=== PATIENT | female | born 1970 | race Caucasian/White ===

== ENCOUNTER → 2016-11-29 | Outpatient (CLI) | payer BC ==
--- NOTE | 2016-11-30 10:15 | WWHP ---
DATE OF SERVICE: 11/29/2016. CHIEF COMPLAINT: Patient is here for her routine gynecologic exam and mammogram. HPI: This is a 46-year-old G3, P3, with an LMP of 2013. Her is status post vasectomy. She has not had any vaginal bleeding since 2013. Has not had any significant hot flashes. She is without gynecologic complaints. PAST MEDICAL HISTORY: Unremarkable. MEDICATIONS: 1. Multivitamin daily. 2. Calcium supplement daily. 3. Vitamin C supplement daily. 4. Vitamin B12 supplement daily. 5. Fish oil supplement daily. ALLERGIES: No known drug allergies. PAST SURGICAL HISTORY: Right arthroscopic knee surgery in high school. 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 She has no history of STDs. SOCIAL HISTORY: She denies tobacco and drug use and socially drinks alcohol. 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 FAMILY HISTORY: Unremarkable. REVIEW OF SYSTEMS: Weight has been stable. She denies respiratory, cardiac, or GI problems. PHYSICAL EXAM: Blood pressure 109/73. Height 5 feet 4 inches. Weight 143 pounds. Temperature 98.4, pulse 58. This a well-developed, well-nourished white female who is alert and oriented x3 in no acute distress. HEENT is within normal limits. NECK: Supple without mass or thyromegaly. CHEST AND LUNGS: Clear to auscultation. HEART: Regular rate and rhythm. BREASTS: Without mass or discharge. Axillary exam is negative for adenopathy. BACK: Negative for CVA tenderness. ABDOMEN: Soft, nontender, without palpable masses. PELVIC EXAM: Normal external genitalia. Cervix and vagina appear normal without significant atrophy. There is no evidence of prolapse. The uterus is midposition, nongravid size and nontender. There are no palpable adnexal masses or tenderness. RECTAL EXAM: Negative for mass or tenderness and is negative for occult blood. EXTREMITIES: Nontender. IMPRESSION: 1. A 46-year-old female with normal gynecologic exam, whose is status post vasectomy. 2. Three years of amenorrhea with no significant vasomotor symptoms. She is probably postmenopausal. PLAN: 1. Pap smear was performed. 2. Self-breast examination was discussed. 3. Mammogram will be done today. 4. FSH will be drawn today to confirm her postmenopausal status. We will do this today because she is really having minimal menopausal symptoms other than the amenorrhea. Thyroid screening was done during this amenorrhea and was normal. 5. If she is menopausal, I have recommended that she increase her calcium intake to about 120% of the daily value. 6. She will return in one year.
--- NOTE | 2016-12-01 10:41 | MM ---
Reason for exam: screening (asymptomatic). Last mammogram was performed 1 year and 4 months ago. History: Patient is postmenopausal. Physical Findings: A clinical breast exam by your physician is recommended on an annual basis and results should be correlated with mammographic findings. MG 3D Screening Mammo W/Cad Bilateral CC and MLO view(s) were taken. Prior study comparison: July 28, 2015, bilateral MG 3d screening mammo w/cad. March 25, 2014, bilateral MG screening mammo w CAD. There are scattered fibroglandular densities. No significant changes when compared with prior studies. ASSESSMENT: Benign, BI-RAD 2 RECOMMENDATION: Routine screening mammogram of both breasts in 1 year.
== END ==
LOC: WWCWWP 15:54
PROVIDERS: ATTEND Obstetrics & Gynecology
DX: Z12.31 Encounter for screening mammogram for malignant neoplasm of breast (principal); N91.1 Secondary amenorrhea
CPT/HCPCS: 83001; 77063; G0202

== ENCOUNTER → 2018-02-14 | Outpatient (CLI) | payer BC ==
[2018-02-14 09:08] VITALS: BP 124/76; PULSE 56; TEMP 97.6; BMI 25.5
--- NOTE | 2018-02-14 09:43 | P.HPOB ---
History of Present Illness H&P Date: 02/14/18 Chief Complaint: The patient is here for her routine gynecologic exam and mammogram. This is a 47-year-old G5 3 PIII with an LMP of 2013. Patient is without gynecologic complaints. Her status post vasectomy. She denies any postmenopausal bleeding. Review of Systems The patient has gained 6 pounds over the last year. She denies respiratory, cardiac, or G.I. problems. 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 She has no history of STDs. 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 - Past Family History Father Family Medical History: No Reported History Mother Family Medical History: No Reported History Medications and Allergies Home Medications Medication Instructions Recorded Confirmed Type Multivitamin with Iron 1 each PO 02/14/18 History [Multivitamins with Iron] Allergies Allergy/AdvReac Type Severity Reaction Status Date / Time No Known Allergies Allergy Unverified 02/14/18 09:03 Exam Vital Signs Temp Pulse BP 02/14/18 09:03 97.6 F 56 L 124/76 Intake and Output 02/13/18 02/14/18 02/14/18 22:59 06:59 14:59 Other: Weight 67.585 kg 5'4", BMI 25.6. This is a well-developed well-nourished white female who is alert and oriented times 3 in no acute distress. HEENT: Within normal limits. NECK: Supple without mass or thyromegaly. CHEST AND LUNGS: Clear to auscultation. HEART: Regular rate and rhythm. BREASTS: Are without mass or discharge. AXILLARY EXAM: Negative for adenopathy. BACK: Negative for CVA tenderness. ABDOMEN: Soft, nontender, without palpable masses. PELVIC EXAM: Normal external genitalia with no significant atrophy. Cervix and vagina appear normal. There is no unusual discharge. There is no evidence of prolapse. The uterus is midposition, nongravid size and nontender. There are no palpable adnexal masses or tenderness. RECTAL EXAM: negative for mass or tenderness and is negative for occult blood. EXTREMITIES: Nontender. IMPRESSION: 1. 47-year-old menopausal female with normal gynecologic exam 2. History of mildly elevated cholesterol PLAN: 1. Pap smear was deferred since she had a normal one last year. 2. Self breast awareness was discussed. 3. Screening mammogram will be done today. 4. Blood tests today will include: fasting lipid profile, comprehensive chem panel and CBC for screening. 5. Osteoporosis prevention was discussed. 6. She will return in one year.
--- NOTE | 2018-02-15 15:39 | MM ---
Reason for exam: screening (asymptomatic). Last mammogram was performed 1 year and 3 months ago. History: Patient is postmenopausal. Physical Findings: A clinical breast exam by your physician is recommended on an annual basis and results should be correlated with mammographic findings. MG 3D Screening Mammo W/Cad Bilateral CC and MLO view(s) were taken. Prior study comparison: November 29, 2016, bilateral MG 3d screening mammo w/cad. July 28, 2015, bilateral MG 3d screening mammo w/cad. There are scattered fibroglandular densities. Asymmetric breast tissue in the left posterior position, stable. There is no discrete abnormality. ASSESSMENT: Negative, BI-RAD 1 RECOMMENDATION: Routine screening mammogram of both breasts in 1 year.
--- NOTE | 2018-02-21 13:38 | P.PN ---
Progress Note - Text Progress Note Date: 02/21/18 OUTPATIENT FOLLOW-UP NOTE TEST(S)/RESULTS: test results from 02/14/2018 include benign mammogram and blood work including comprehensive chemistry panel ,lipid profile and CBC. Lipid panel breakdown was acceptable. She did have minimally elevated total bilirubin. Alk phos, liver function studies were within normal limits. METHOD OF NOTIFICATION: vision was notified by phone. PATIENT COMMENTS: the patient understands the results. DIAGNOSIS: minimally elevated total bilirubin with other normal screening test results. DISCUSSION: we have discussed how there can be many different causes for a slightly elevated total bilirubin, including liver dysfunction, gallbladder problems and other causes for red blood cell breakdown. Since she had a normal comprehensive chemistry panel other than the total bilirubin, I feel this finding is probably less concerning. PLAN: repeat the total bilirubin with the liver panel which should also give indirect and direct bilirubin. If it remains elevated, consider referral primary care physician or G.I. specialist.
== END | disposition home or self-care (01) ==
LOC: WWCWWP 08:42
PROVIDERS: ATTEND Obstetrics & Gynecology
DX: Z12.31 Encounter for screening mammogram for malignant neoplasm of breast (principal)
CPT/HCPCS: 77063; 77067

== ENCOUNTER → 2018-02-14 | Outpatient (CLI) | payer BC ==
[2018-02-14 10:11] LABS: HCT 40.1 % (34.0-46.0); HGB 13.3 gm/dL (11.4-16.0); MCH 31.2 pg (25.0-35.0); MCHC 33.1 g/dL (31.0-37.0); MCV 94.1 fL (80.0-100.0); Mean Platelet Volume 8.5; Platelet Count 219 k/uL (150-450); RBC 4.26 m/uL (3.80-5.40); RDW 12.5 % (11.5-15.5); WBC 4.3 k/uL (3.8-10.6)
[2018-02-14 10:28] LABS: ALT 27 U/L (9-52); AST 33 U/L (14-36); Albumin 4.3 g/dL (3.5-5.0); Alkaline Phosphatase 55 U/L (38-126); Anion Gap 9 mmol/L; Blood Urea Nitrogen 11 mg/dL (7-17); Calcium 9.7 mg/dL (8.4-10.2); Carbon Dioxide 29 mmol/L (22-30); Chloride 103 mmol/L (98-107); Cholesterol 223 mg/dL (<200); Glucose 92 mg/dL (74-99); HDL Cholesterol 99 mg/dL (40-60); LDL Cholesterol,Calculated 103 mg/dL (0-99); Sodium 141 mmol/L (137-145); Total Bilirubin 1.4 mg/dL (0.2-1.3); Triglycerides 107 mg/dL (<150)
== END | disposition home or self-care (01) ==
LOC: LABWHC1 09:52
PROVIDERS: ATTEND Obstetrics & Gynecology
DX: Z00.00 Encounter for general adult medical examination without abnormal findings (principal); E78.5 Hyperlipidemia, unspecified
CPT/HCPCS: 36415; 80053; 80061; 85027

== ENCOUNTER → 2019-08-20 | Outpatient (CLI) | payer BC ==
[2019-08-20 16:19] VITALS: BP 123/72; PULSE 52; RESP 16; TEMP 98.1
--- NOTE | 2019-08-20 17:17 | P.HPOB ---
History of Present Illness H&P Date: 08/20/19 Chief Complaint: The patient is here for her routine gynecologic exam. This is a 49-year-old with an LMP of 2013. The patient is without gynecologic complaints and denies any postmenopausal bleeding. Her is status post vasectomy. Review of Systems The patient's weight has been stable over the last year. She denies respiratory, cardiac, or G.I. problems. 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 History of Any Multi-Drug Resistant Organisms: None Reported Past Surgical History: Orthopedic Surgery Additional Past Surgical History / Comment(s): Right arthroscopic knee surgery. 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 - Past Family History Father Family Medical History: No Reported History Mother Family Medical History: No Reported History Medications and Allergies Home Medications Medication Instructions Recorded Confirmed Type Multivitamin with Iron 1 each PO DAILY 02/14/18 08/20/19 History [Multivitamins with Iron] Calcium Carbonate [Calcium] 600 mg PO DAILY 08/20/19 08/20/19 History Allergies Allergy/AdvReac Type Severity Reaction Status Date / Time No Known Allergies Allergy Unverified 02/14/18 09:03 Exam Vital Signs Temp Pulse Resp BP Pulse Ox 08/20/19 16:15 98.1 F 52 L 16 123/72 98 Intake and Output 08/20/19 08/20/19 08/20/19 06:59 14:59 22:59 Other: Weight 67.132 kg Height 5 feet 4 inches, weight 148 pounds, BMI 25.4. This is a well-developed well-nourished white female who is alert and oriented times 3 in no acute distress. HEENT: Within normal limits. NECK: Supple without mass or thyromegaly. CHEST AND LUNGS: Clear to auscultation. HEART: Regular rate and rhythm. BREASTS: Are without mass or discharge. AXILLARY EXAM: Negative for adenopathy. BACK: Negative for CVA tenderness. ABDOMEN: Soft, nontender, without palpable masses. PELVIC EXAM: Normal external genitalia with minimal atrophy. Cervix and vagina appear normal is minimal atrophy. There is no unusual discharge. There is no evidence of prolapse. The uterus is midposition, nongravid size and nontender. There are no palpable adnexal masses or tenderness. RECTAL EXAM: negative for mass or tenderness and is negative for occult blood. EXTREMITIES: Nontender. IMPRESSION: 1. 49-year-old menopausal female with normal gynecologic exam. 2. History of mildly elevated cholesterol. PLAN: 1. Pap smear was performed. 2. Self breast awareness was discussed with the patient. 3. Screening mammogram was declined by the patient. She states she plans on doing this again next year. She had a normal one on 02/14/2018. 4. Osteoporosis prevention was discussed. I have stressed the importance of adequate calcium, vitamin D and regular exercise. Recommended amounts of calcium and vitamin D were also discussed. 5. The patient is requesting screening labs. She states she does not have a primary care physician at this time. This will include fasting lipid profile, comprehensive chem panel, and CBC. She had a minimally elevated total bilirubin in 2018. This will be repeated with her comprehensive chem panel. 6. She was advised to return in one year for her annual well woman exam.
--- NOTE | 2019-08-28 10:16 | P.PN ---
Progress Note - Text Progress Note Date: 08/28/19 OUTPATIENT FOLLOW-UP NOTE TEST(S)/RESULTS: Pap smear done on 08/20/2019 was negative. Blood work done on 08/27/2019 included a normal CBC, lipid profile with mildly elevated cholesterol with a good lipid break down, and comprehensive chem panel which was normal except for slightly increased BUN/creatinine ratio which probably indicates mild dehydration. METHOD OF NOTIFICATION:The patient was notified by phone. PATIENT COMMENTS: The patient is happy to hear these results. DIAGNOSIS: Negative Pap smear and good lab screening tests. DISCUSSION:Last year her total bilirubin was minimally elevated and this time was within normal limits.] PLAN: She was advised to return in one year for her annual well woman exam.
== END | disposition home or self-care (01) ==
LOC: WWCWWP 15:49
PROVIDERS: ATTEND Obstetrics & Gynecology
DX: Z53.9 Procedure and treatment not carried out, unspecified reason (principal)

== ENCOUNTER → 2019-08-27 | Outpatient (CLI) | payer BC ==
[2019-08-27 08:00] LABS: HCT 41.6 % (34.0-46.0); HGB 13.7 gm/dL (11.4-16.0); MCH 31.7 pg (25.0-35.0); Mean Platelet Volume 8.9; Platelet Count 231 k/uL (150-450); RBC 4.33 m/uL (3.80-5.40); RDW 11.9 % (11.5-15.5); WBC 5.3 k/uL (3.8-10.6)
[2019-08-27 12:07] LABS: African American GFR (CKD) 119.6 (60.0-200.0); Albumin 4.6 g/dL (3.80-4.90); Albumin/Globulin Ratio 2.19 (1.60-3.17); Anion Gap 8.2 mmol/L (4.00-12.00); BUN/Creat Ratio 21.43 Ratio (12.00-20.00); Calcium 9.5 mg/dL (8.7-10.3); Carbon Dioxide 26.8 mmol/L (21.6-31.8); Chol/HDL Ratio 2.23; Globulin 2.1 g/dL (1.6-3.3); LDL Cholesterol,Calculated 102.2 mg/dL (0.0-131.0); Non-African American GFR(CKD) 103.2 (60.0-200.0); Potassium 3.8 mmol/L (3.5-5.5); Total Bilirubin 1.2 mg/dL (0.2-1.2); Total Protein 6.7 g/dL (6.2-8.2); VLDL Calculation 15.8 mg/dL (5.00-40.00)
== END | disposition home or self-care (01) ==
LOC: LABWHC1 07:27
PROVIDERS: ATTEND Obstetrics & Gynecology
DX: Z00.00 Encounter for general adult medical examination without abnormal findings (principal); E78.5 Hyperlipidemia, unspecified
CPT/HCPCS: 36415; 80053; 80061; 85027

== ENCOUNTER → 2020-12-24 | Outpatient (CLI) | payer BC ==
[2020-12-24 22:39] LABS: Basophils # (A) 0.02 X 10*3/uL (0.00-0.10); Basophils % (A) 0.3 %; Eosinophils # (A) 0.03 X 10*3/uL (0.04-0.35); Eosinophils % (A) 0.5 %; HGB 13.3 g/dL (12.0-15.0); Lymphocytes # (A) 1.61 X 10*3/uL (0.90-5.00); Lymphocytes % (A) 25.1 %; MCH 31.4 pg (27.0-32.0); MCHC 33.3 g/dL (32.0-37.0); MCV 94.3 fL (80.0-97.0); Mean Platelet Volume 11.8 fL (9.5-12.2); Monocytes # (A) 0.53 X 10*3/uL (0.20-1.00); Monocytes % (A) 8.3 %; Neutrophils # (A) 4.21 X 10*3/uL (1.80-7.70); Neutrophils % (A) 65.5 %; Platelet Count 236 X 10*3/uL (140-440); RBC 4.24 X 10*6/uL (4.10-5.20); WBC 6.42 X 10*3/uL (4.50-10.00)
[2020-12-25 00:36] LABS: Chol/HDL Ratio 2.45
== END | disposition home or self-care (01) ==
LOC: LABWHC1 15:29
PROVIDERS: ATTEND Nurse Practitioner Adult Health
DX: Z00.00 Encounter for general adult medical examination without abnormal findings (principal); G56.03 Carpal tunnel syndrome, bilateral upper limbs
CPT/HCPCS: 36415; 80061; 85025

== ENCOUNTER 2020-12-30 11:43 | Day surgery (SDC) | payer BC ==
[2020-12-28 11:15] VITALS: BMI 25.7
[~2020-12-30 11:43] MED LIST: DEXAMETHASONE SOD PHOSPHATE 4 MG/ML 1 ML VIAL IV ONE; HYDROmorphone 0.5 MG/0.5 ML SYRINGE IVP PRN; LACTATED RINGERS 1,000 ML IV SCH; LIDOCAINE 1% (10MG/ML) FOR IV START INTRADERMA PRN; Pre Op ABX Message 1 EACH MISC MISCELLANE ONE
[2020-12-30] MEDS ORDERED: ONDANSETRON 4 MG/2 ML VIAL ONE (12:24)
[2020-12-30] MEDS ORDERED: ONDANSETRON 4 MG/2 ML VIAL IVP ONE (12:26)
[2020-12-30] MEDS ORDERED: LIDOCAINE 1% INJ 10MG/ML (20 ML MDV) ONE (13:36)
[2020-12-30] MEDS ORDERED: MIDAZOLAM 2 MG/2 ML VIAL ONE (13:36)
[2020-12-30] MEDS ORDERED: PROPOFOL 10 MG/ML 20 ML VIAL IV ONE (13:36)
[2020-12-30] MEDS ORDERED: SODIUM CHLORIDE 0.9% 100 ML BAG ONE (13:36)
[2020-12-30] MEDS ORDERED: ceFAZolin 1,000 MG VIAL ONE (13:36)
[2020-12-30] MEDS ORDERED: fentaNYL (PF) 50 MCG/ML 2 ML AMP ONE (13:36)
[2020-12-30] MEDS ORDERED: BUPIVACAINE (PF) 0.25% 30 ML VIAL SQ ONE ×3 (14:00→14:47)
--- NOTE | 2020-12-30 15:03 | P.OP ---
Date of Procedure: 12/30/20 Preoperative Diagnosis: Subluxed second metatarsal phalangeal joint left foot and hammertoe deformity second toe left foot Postoperative Diagnosis: Same Procedure(s) Performed: Cristino osteotomy second metatarsal left foot Arthrodesis second toe proximal interphalangeal joint left foot Anesthesia: YOANA Surgeon: Joaquim George Indications for Procedure: Pain second ray left foot Operative Findings: Unremarkable Description of Procedure: On the date of surgery the patient was taken operating room good condition placed on the operating table supine position where we'll anesthetic agents were administered patient's left foot negative then prepped and draped in the usual aseptic manner. Over heavy web roll padding an ankle tourniquet was placed above the malleoli of the patient's left ankle. The patient's left foot and ankle were then elevated and exsanguinated of blood utilizing an Esmarch bandage and after approximately 1 minutes. A time the ankle tourniquet to the patient's left ankle was inflated to approximately 250 mmHg At this time attention was directed to the dorsal aspect of the second ray of the patient's left foot where an approximately 6-7 cm dorsal linear incision was made the incision was started at the distal one third of the second metatarsal and extended distally past the proximal interphalangeal joint dissection was carried deep on either side of the proximal interphalangeal joint and the extensor digitorum longus tendon to the second toe was incised transversely at the level of the proximal interphalangeal joint the ends were underscored and retracted from the underlying bone. The collateral ligaments on either side of the second metatarsal phalangeal joint were incised. The capital fragment of this proximal phalanx was then resected it a 90 angle to the shaft and removed in total from the surgical site. Lysing the oscillating bone saw the base of the middle phalanx was excoriated and the cartilage was removed. A 0.045 K wire was then driven distally through the middle and distal phalanx and retrograded back into the proximal phalanx. Throughout the surgical procedure copious amounts sterile saline solution was used to irrigate the surgical site. At this time attention was directed to the incision overlying the second metatarsal phalangeal joint dissection was carried deep down to the level of the Periosteal Structures the Extensor Digitorum Longus Tendon Was Identified and Tenotomized. Dapsone Periosteal Structures Were Incised Just Lateral to the Extensor Digitorum Longus Tendon and the Collateral Ligaments on Either Side of the Base of the Proximal Phalanx Were Incised. The capital fragment of the second metatarsal was developed through the incision site that dorsal distal plantar osteotomy was performed at the capital fragment upon completion of this the hallux of the second metatarsal was seen to retract proximally. 0.045 K wire was then driven from dorsal to plantar stating the distal aspect of the dorsal aspect of the shaft of the second metatarsal and the capital fragment below it. Periosteal Structures Were Then Coaptated and Maintained Utilizing 3-0 Vicryl Simple Interrupted Suture Subcutaneous Tissues Were Coaptated and Maintained Utilizing 3-0 Vicryl Simple Interrupted Suture and the Skin Was Closed Utilizing 4-0 Nylon Simple Interrupted Suture upon Completion of This Pawan Digit Was Seen to Maintain and Anatomically Corrected Position. The Skin Was Then Closed Utilizing 4-0 Nylon Simple Interrupted Suture Adaptic Kerlix Fluffs Four-Inch Conformer and 4 Inch Coban Was Used To Form a Compression Dressing and the Ankle Tourniquet to the Patient's Left Ankle Was Deflated Adequate Hemostatic Return Was Seen in All Digits of the Patient's Left Foot Specifically the Second Toe. The patient tolerated the surgery and anesthesia well was taken to The recovery room in good postoperative condition
[2020-12-30 15:05] VITALS: RESP 16; TEMP 97.2
[2020-12-30 16:17] VITALS: BP 135/76; PULSE 57
== END 2020-12-30 16:44 | disposition home or self-care (01) ==
LOC: OR 11:43
PROVIDERS: ATTEND Podiatrist Foot & Ankle Surgery
DX: S93.145A Subluxation of metatarsophalangeal joint of left lesser toe(s), initial encounter (principal); M20.42 Other hammer toe(s) (acquired), left foot; G56.03 Carpal tunnel syndrome, bilateral upper limbs; M89.49 Other hypertrophic osteoarthropathy, multiple sites
CPT/HCPCS: 88304; 88311; 28308; 28285; J2250; J1100; J2405; J0690; J2001; J3010; J2704

== ENCOUNTER → 2021-02-09 | Outpatient (CLI) | payer BC | CPT/HCPCS: 77063; 77067 ==

== ENCOUNTER → 2023-07-25 | Outpatient (CLI) | payer BC ==
--- NOTE | 2023-07-26 17:07 | MM ---
Reason for Exam: Screening (asymptomatic). Last mammogram was performed 2 year(s) and 5 month(s) ago. Patient History: Menarche at age 17. First Full-Term at age 23. Postmenopausal. Patient has history of breast feeding. Patient used Hormonal Contraceptives for 5 years. Risk Values: Abigail 5 year model risk: 0.8%. NCI Lifetime model risk: 7.2%. Prior Study Comparison: 11/29/2016 Bilateral Screening Mammogram, [facility]. 02/14/2018 Bilateral Screening Mammogram, [facility]. 02/09/2021 Bilateral Screening Mammogram, [facility]. Tissue Density: There are scattered fibroglandular densities. Findings: Analyzed By CAD. There is chronic bilateral nodularity, particularly on the left. There is no suspicious group of microcalcifications or new suspicious mass in either breast. Overall Assessment: Benign, BI-RAD 2 Management: Screening Mammogram of both breasts in 1 year. . Patient should continue monthly self-breast exams. A clinical breast exam by your physician is recommended on an annual basis. This exam should not preclude additional follow-up of suspicious palpable abnormalities. Note on Abigail scores and lifetime risk: 1. A Abigail score greater than 3% is considered moderate risk. If this is the case, consider specialist referral to assess eligibility for a risk reducing agent. 2. If overall lifetime risk for the development of breast cancer is 20% or higher, the patient may qualify for future screening with alternating mammogram and breast MRI. Electronically signed and approved by: Nawaf Borrego M.D. Radiologist
== END | disposition home or self-care (01) ==
LOC: RADMAMWWP 10:48
PROVIDERS: ATTEND Family Medicine
DX: Z12.31 Encounter for screening mammogram for malignant neoplasm of breast (principal); Z78.0 Asymptomatic menopausal state
CPT/HCPCS: 77063; 77067